=== PATIENT | female | born 1940 | race Caucasian/White ===

== ENCOUNTER 2017-03-06 09:10 | Inpatient (IN) | payer MEDICARE, BC ==
[~2017-03-06] VITALS: Ht 165.1 cm; Wt 94.4 kg
--- NOTE | ~2017-03-06 | DS ---
PATIENT'S NAME: JENNA NIXON [facility] AGE: 77 Y [address] ROOM: [address] [address] [place] [facility] [place]: 03/07/2017 Discharge Summary DISCHARGE DATE: 03/12/2017 FAMILY PHYSICIAN: Physician, Unknown ATTENDING PHYSICIAN: Cliff Art ADDENDUM: Discharge time spent on this patient is approximately 35 minutes, which included a lot of counseling done with the patient regarding her heart failure and fluid management, and she had other questions, all of which were answered. MD IVON MALIK/daphney /[id number] d: 03/13/17 0039 t: 03/17/17 1622, DISCHARGE SUMMARY
--- NOTE | ~2017-03-06 | OR ---
PATIENT'S NAME: JENNA NIXON [facility] AGE: 77 Y [address] ROOM: [address] [address] [place]: [facility] [place] DATE: 03/06/2017 OR/Procedure Report DISCHARGE DATE: FAMILY PHYSICIAN: PHYSICIAN, UNKNOWN ATTENDING PHYSICIAN: Jacob Montoya SURGEON: Jacob Montoya MD MONEY MARKET CLERK: DATE OF PROCEDURE: 03/06/2017 PREOPERATIVE DIAGNOSIS: Right proximal ureteral calculus. POSTOPERATIVE DIAGNOSIS: Right proximal ureteral calculus with possible uric acid stone. PROCEDURE: Cystoscopy and right stent placement. ANESTHESIA: Sedation. INDICATION: This is a 77-year-old lady transferred from Dr. Rivas with a 5 mm right proximal ureteral calculus. She had associated abdominal pain. She also had nausea and vomiting. On further review, we also find that she has had a complicated recent history. In fact, the anesthesia has recommended against any general anesthetic, so we will avoid proximal ureteroscopy. We will proceed with sedation and stent her. They have also recommended admission for observation. That is all related to some dizziness and a recent fall. She was found to have an O2 saturation of 66% when she arrived in preop here. She was also hypertensive. She has been following with a cotton converter in [place]. They have not gotten any answers at this point. She was not supposed to be on home O2, but they did recommend CPAP. She has not gotten that started. The consensus is that there was significant health concerns with too much gap in between and she is a long ways from home in [place], so she and her son have agreed to observation admission. She does okay afterwards, she can continue her previous workup as an outpatient. Her pain has been going on for some time. In fact, the outside records indicate that a CT scan was ordered in October, but she still has not gotten it done to this point. She had a chest CT scan done earlier this month, there were some vague changes in her right kidney. I suspect that is related to obstruction. In any event, we will stent her acutely, continue the workup of her other issues, and then either proceed with lithotripsy or ureteroscopy electively. DESCRIPTION OF PROCEDURE: Having obtained informed consent, the patient was PATIENT'S NAME: JENNA NIXON [facility] AGE: 77 Y [address] ROOM: [address] [address] LOCATION: [facility] [place] DATE: 03/06/2017 OR/Procedure Report DISCHARGE DATE: FAMILY PHYSICIAN: PHYSICIAN, UNKNOWN ATTENDING PHYSICIAN: Jacob Montoya taken to the cystoscopy suite. She was prepped and draped sterilely and in lithotomy position. IV sedation was administered. A 21-Upper Sorbian cystoscope was assembled and guided into the urethra. She has some yellow crystals and even small stones floating in her bladder. Consistent with that, I cannot appreciate her stone on fluoroscopy. I suspected it is uric acid. Bladder examination was confirmed with a 70-degree lens. I passed a guidewire up the right side. It slides to the renal pelvis and not meet any obstruction. Over that wire, I passed a 4.8 multilink stent. We have a nice level of placement cystoscopically and fluoroscopically. The bladder was drained in the case and is concluded. She tolerated the procedure well. BLOOD LOSS: Minimal. SPECIMENS: No specimens were sent. CONDITION: The patient returned to the recovery area, awake and stable condition. PLAN: I have discussed her recent history with the hospitalist. They will admit for observation. We will make arrangements for elective stone treatment in the future. JACOB MONTOYA MD SF/modl /[id number] CC: Dayanara Rivas MD d: 03/06/17 2043 t: 03/26/17 0634, OPERATIVE SUMMARY
--- NOTE | ~2017-03-06 | PUL ---
PATIENT'S NAME: JENNA NIXON [facility] AGE: 77 Y [address] ROOM: [address] [address] LOCATION: [facility] [place] ADMIT DATE: 03/07/2017 Pulmonary DISCHARGE DATE: FAMILY PHYSICIAN: PHYSICIAN, UNKNOWN ATTENDING PHYSICIAN: SHABANA IBRAHIM NAME OF PROCEDURE: Overnight Trend Oximetry DATE OF PROCEDURE: March 11 to March 12, 2017 REASON FOR EXAM: Nocturnal hypoxemia RESULTS: Patient underwent overnight trend oximetry with saturations ranging from 80 to 95%. Saturations were below 88% for greater than 5 minutes. Heart rate ranged from 73 to 97 beats per minute. SALVADOR QUIROZ MD /[id number] dtt: 03/26/17 0827 , Salvador Quiroz dtd: 03/12/17 1509
--- NOTE | ~2017-03-06 | HP ---
PATIENT'S NAME: JENNA NIXON [facility] AGE: 77 Y [address] ROOM: [place] [address] LOCATION: [facility] [place] ADMIT DATE: 03/06/2017 History & Physical DISCHARGE DATE: FAMILY PHYSICIAN: PHYSICIAN, UNKNOWN ATTENDING PHYSICIAN: Jacob Wang DATE OF SERVICE: CHIEF COMPLAINT: Acute hypoxic respiratory failure. HISTORY OF PRESENT ILLNESS: The patient is a 77-year-old female with past medical history of obstructive sleep apnea, diabetes mellitus type 2, hypertension, and obesity, who presents here with acute hypoxic respiratory failure subsequently after cystoscopy with stent placement in right ureter. The patient was recently admitted in [facility] few days ago with right quadrant pain. CT was done and shows obstructive stone with hydronephrosis. The patient was transferred here for cystoscopy and stent placement. The patient was seen by Dr. Wang and had a successful cystoscopy and stent placement. However, the patient was noted to have increased oxygen demand shortly after the surgery. The patient's O2 saturation decreased all the way around in the low 80s. The patient was started on 4 L nasal cannula oxygen and was admitted for observation for hypoxic respiratory failure. The patient reports that she was recently diagnosed with obstructive sleep apnea and was told that her right diaphragm is elevated. The patient is scheduled to be started on CPAP at night. The patient also reports dyspnea on exertion with minimal exertion. The patient currently denies chest pain, fever, cough, abdominal pain, nausea, vomiting, diarrhea, or dizziness. The patient reports that she has been off her metformin and detemir in the past 2 days and reports that her blood glucose level is around 150s. The patient also reports that episode of hypoglycemia at home while she is on metformin and 40 units of detemir. MEDICAL HISTORY: 1. Obstructive apnea. 2. Diabetes mellitus type 2. 3. Hypertension. 4. GERD. 5. Hypothyroidism. SURGICAL HISTORY: 1. Cholecystectomy. 2. EGD. FAMILY HISTORY: PATIENT'S NAME: JENNA NIXON [facility] AGE: 77 Y [address] ROOM: [place] [address] LOCATION: [facility] [place] ADMIT DATE: 03/06/2017 History & Physical DISCHARGE DATE: FAMILY PHYSICIAN: PHYSICIAN, UNKNOWN ATTENDING PHYSICIAN: Jacob Wang CVA in father. Son has polycystic kidney disease. 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 MEDICATIONS: Please see MAR. REVIEW OF SYSTEMS: All systems have been reviewed and negative except for what is mentioned in the HPI. PHYSICAL EXAMINATION: VITAL SIGNS: Afebrile, blood pressure 198/84, heart rate of 63, saturating 93% on 4 L oxygen with respiratory rate of 14. GENERAL APPEARANCE: The patient is alert and awake, in no acute distress. HEAD: Normocephalic and atraumatic. EYES: Extraocular muscle intact. NOSE: No nasal discharge. EARS: No ear discharge. ORAL CAVITY: Moist oral mucosa. HEART: The patient has grade 2 systolic murmur heard on second intercostal. No rubs or gallops. CHEST: Mild bibasilar rales. Decreased breath sounds in right lower lung wyman. No rales or rhonchi heard. ABDOMEN: Soft, nontender, and nondistended. Bowel sounds present. SKIN: Warm to touch. MUSCULOSKELETAL: Range of motion intact. No obvious effusion. LOWER EXTREMITY: Bilateral pitting edema. BOOM PUMP OPERATOR: Alert and oriented x3. Motor and sensory grossly intact. DATA: Labs taken yesterday from [facility] show sodium of 140, potassium of 3, chloride of 101, CO2 of 26, BUN of 16, creatinine of 0.84, and blood glucose 104. Hemoglobin of 10, white blood cell count of 8.26, and platelet of 216. Telemetry shows sinus bradycardia with heart rate in the 50s. ASSESSMENT AND PLAN: 1. Acute hypoxic respiratory failure. Etiology most likely secondary to recent cystoscopy requiring anesthesia. However, according to the patient's history, the patient has uncontrolled hypertension and has history of diabetic and obese, and the patient is also 77, so one wonder if the patient has underlying heart failure. From the history and PATIENT'S NAME: JENNA NIXON [facility] AGE: 77 Y [address] ROOM: [address] [address] LOCATION: [facility] [place] ADMIT DATE: 03/06/2017 History & Physical DISCHARGE DATE: FAMILY PHYSICIAN: PHYSICIAN, UNKNOWN ATTENDING PHYSICIAN: Jacob Wang examination, the patient has some bibasilar rales, pitting edema, and also has dyspnea on exertion. Thus, we will start the patient on Lasix 20 mg IV t.i.d. We will stop IV fluids. We will also acquire chest x- ray and a proBNP to further investigate underlying heart failure. We will start the patient on diabetic diet with low-salt diet. We will also acquire chest x-ray and EKG. I discussed this with the patient. The patient reports that she has been seen by Dr. Mendoza in the past and has had cardiac cath done in 2007 and was told she has good heart. However, we will continue with current regimen and see if the patient's symptoms improve. If the above workup is significant, the patient would benefit with a cardiology consult with Dr. Mendoza for further investigation including echocardiogram. 2. Diabetes mellitus type 2. The patient reports that she takes Levemir 40 units in the morning and also metformin 1000 b.i.d. However, at home, she reports that she has episodes of hypoglycemia. Interestingly, the patient's blood glucose has been somewhat euglycemic without medication at [facility]. Thus, we will discontinue detemir for now. Start the patient on sliding scale and continue metformin. We will follow up with close monitor with Accu-Chek. 3. Accelerated hypertension. Blood pressure 199/84. We will start the patient on medication of BALJIT inhibitor and also add Lasix to her regimen, and we will follow the patient closely. 4. Hypothyroidism. Continue medication. 5. Gastroesophageal reflux disease. Continue PPI. 6. Obstructive sleep apnea. The patient has not been started on CPAP but is currently waiting for CPAP machine. While she is here, we will start the patient on CPAP machine. 7. Obesity. Ongoing. 8. Hypokalemia. Potassium of 3. We will supplement potassium and repeat CMS in the morning. 9. Abelino kidney stone with hydronephrosis, status post stent placement. Management per Dr. Wang. The patient is stable. The patient tolerated the procedure well. I have personally reviewed the patient's medical record including but not limited to blood work and radiology report. Total time spent with the patient is greater than 60 minutes, more than 50% of the time is spent in direct patient care. Case was reviewed with the patient, nursing staff. All questions were answered to the patient's satisfaction. We will admit the patient for observation. ROCK AKBAR MD PATIENT'S NAME: JENNA NIXON [facility] AGE: 77 Y [address] ROOM: [place] [address] LOCATION: [facility] [place] ADMIT DATE: 03/06/2017 History & Physical DISCHARGE DATE: FAMILY PHYSICIAN: PHYSICIAN, UNKNOWN ATTENDING PHYSICIAN: Jacob Wang/daphney /[id number] D: [id number] T: [id number] HISTORY & PHYSICAL
--- NOTE | ~2017-03-06 | ECHO ---
Transthoracic Echocardiography Report (TTE) Demographics Patient Name JENNA NIXON Date of Study 03/07/2017 Patient Number [id number] Visit Number [id number] Date of 1940 Room Number G3223 Gender Female Number Age 77 year(s) Referring Kaelyn Wong Datastage Architect Cristina Berg RDCS, Physician RVT Physician Interpreting Leny Chairez Bottle Assembler Physician A Supervising Ordering Kaelyn Wong MD/MLP Physician MD Nurse Stress R D Internship Conclusions Contractility Score Summary Normal Left Ventricular contractility was noted. Summary The estimated left ventricular ejection fraction is 65-70%. Diastolic assessment reveals Grade I diastolic dysfunction. The left atrium is severely dilated by LA volume index measurement. Moderate mitral valve stenosis. The mean gradient is 7 mmHg. Mild to moderate calcification of the mitral valve. Moderate mitral annular calcification. There is mild aortic stenosis by the Continuity Equation. The peak velocity is 2.56 m/s, the mean gradient is 14 mmHg, and the valve area based on the continuity equation is 1.44 cm2. Mild tricuspid regurgitation by color Doppler. There is moderate pulmonary hypertension. The pulmonary pressure (RVSP) is 49.11 mmHg. Procedure Type of Study TTE procedure:2D Echocardiogram. Procedure Date Date: 03/07/2017 Start: 02:45 PM Study Location: Echo Lab Technical Quality: Adequate visualization Indications:Ventricular tachycardia. Appropriate Use Criteria: 9 Patient Status: CAROLE HR: 92 bpm BP: 135/64 mmHg M-Mode/2D Measurements LV Diastolic Dimension: 4.4 cm LV Systolic Dimension: 1.68 cm LV Septum Diastolic: 0.84 cm LV PW Diastolic: 0.99 cm AO Root Dimension: 2.9 cm Cardiac Output: 6.44 l/min AV Cusp Separation: 1.7 cm RV Diastolic Dimension: 2.76 cm LA volume: 110 ml LVOT: 1.9 cm RV Base: 3.2 cm LVOT VTI: 24.7 cm RV Mid: 2.99 cm LV Stroke volume: 70 ml TAPSE: 2.3 cm TDI-S': 12.6 cm/s Doppler Measurements AV Peak Velocity: 2.56 m/s MV Peak E-Wave: 1.29 m/s AV Peak Gradient: 26.21 mmHg MV Peak A-Wave: 1.67 m/s AV Mean Gradient: 14 mmHg MV E/A Ratio: 0.77 LVOT Peak Velocity: 1.24 m/s MV P1/2t: 132 msec TR Gradient:34.11 mmHg PV Peak Velocity: 0.9 m/s Estimated RAP:15 mmHg PV Peak Gradient: 3.2 mmHg Estimated RVSP: 49 mmHg Estimated PASP: 49.11 mmHg E' Septal Velocity: 0.05 m/s A' Septal Velocity: 0.1 m/s E' Lateral Velocity: 0.08 m/s A' Lateral Velocity: 0.14 m/s Findings Left Ventricle Diastolic assessment reveals Grade I diastolic dysfunction. Right Ventricle Normal right ventricle structure and function. Left Atrium The left atrium is severely dilated by LA volume index measurement. Right Atrium Normal right atrial size. The interatrial septum appears aneurysmal. Mitral Valve Moderate mitral valve stenosis. The mean gradient is 7 mmHg. Mild to moderate calcification of the mitral valve. Moderate mitral annular calcification. Aortic Valve There is mild aortic stenosis by the Continuity Equation. The peak velocity is 2.56 m/s, the mean gradient is 14 mmHg, and the valve area based on the continuity equation is 1.44 cm2. Tricuspid Valve Mild tricuspid regurgitation by color Doppler. There is moderate pulmonary hypertension. The pulmonary pressure (RVSP) is 49.11 mmHg. Pulmonic Valve Normal pulmonic valve structure and function. Pericardial Effusion No evidence of pericardial effusion. Miscellaneous Visualized portions of the aortic root and ascending aorta appear normal in size. Pleural Effusion No evidence of pleural effusion. Contractility Score LV regional wall motion:(0-Non visualized 1-Normal 2-Hypokinesis 3-Akinesis 4-Dyskinesis 5-Aneurysm) Signature dtt: Norberto Michele dtd: 03/07/17 1445 Physician Self Edit
--- NOTE | ~2017-03-06 | DS ---
PATIENT'S NAME: JENNA NIXON [facility] AGE: 77 Y [address] ROOM: [address] [address] [place] [facility]: 03/07/2017 Discharge Summary DISCHARGE DATE: 03/12/2017 FAMILY PHYSICIAN: Physician, Unknown ATTENDING PHYSICIAN: Cliff Art PRIMARY DIAGNOSES: 1. Acute hypoxic respiratory failure. 2. Rbemt-rv-qxonwsv diastolic heart failure. 3. Valvular atrial fibrillation. 4. Acute kidney injury on chronic kidney disease, stage 3. 5. Diabetes type 2. 6. Morbid obesity. 7. Obstructive sleep apnea. 8. Right ureteral stone. PRINCIPAL PROCEDURE DONE FOR THE PATIENT: Includes cystoscopy with a right ureteral stent placement by Dr. Wang. LABORATORY DATA: On admission, WBC on admission was 7.8, was stable throughout the hospital stay, prior to discharge was 8.8, H and H on admission was 11.1/33.4, prior to discharge was 10.9/33.4, creatinine on admission was 1.1, prior to discharge was 1.4. Sodium on admission was 138, prior to discharge was 147, potassium was 3.6 upon admission, prior to discharge was 3.7, bicarb was stable throughout the hospital stay, it was 23 on admission, prior to discharge was 30, BUN was 39, calcium was stable throughout the hospital stay. Magnesium on admission was 1.6, prior to discharge was 2.0. Liver function test was within normal limits throughout the hospital stay. Hemoglobin A1c was 9.5. TSH was 1.190. RADIOLOGY: Chest x-ray on admission was reported as low lung volumes with streaky bibasilar opacity, which could reflect atelectasis or infiltrate. Elevation of right hemidiaphragm. Repeat chest x-ray, a couple of days later, cardiac enlargement with mild vascular congestion. Low lung volumes with bibasilar streaky opacity, which could reflect edema, atelectasis, or infiltrate. Worsening in the overall radiographic appearance since prior imaging. Echocardiogram is reported as ejection fraction 65% to 70% diastolic. Assessment grade 1 diastolic dysfunction. Vczu-af-cqwxsyti calcification of the mitral valve stenosis and mild aortic stenosis. PA pressure 49. HOSPITAL COURSE: For history of present illness, please take a look at the H and P, which was done by Dr. Kyle. The patient following the procedure of cystoscopy with right ureteral stent placement. Postop in PACU, the patient's acute hypoxic respiratory failure had got worse and so care was transferred PATIENT'S NAME: JENNA NIXON [facility] AGE: 77 Y [address] ROOM: [place] [address] [place] [facility] [place]: 03/07/2017 Discharge Summary DISCHARGE DATE: 03/12/2017 FAMILY PHYSICIAN: Physician, Unknown ATTENDING PHYSICIAN: Cliff Art over to hospitalist and the patient was managed in the Medical/Surgical Unit. The acute hypoxic respiratory failure was thought to be secondary to acute-on- chronic diastolic heart failure; so, the patient was gently diuresed. The patient was on 4 L of nasal cannula at least for the 3 days of the hospital stay with difficulty in weaning off the oxygen. Because of the initial difficulty with weaning off the oxygen, a repeat chest x-ray which was done 3 days after hospital admission showed a worsening. She was continued on gentle diuresis, secondary to her CKD, stage 3. By the 4th day of the hospital stay, the patient's oxygen demand had reduced from 4 to 2 and she was continued to be weaned off oxygen; and by the 5th day she was successfully weaned off oxygen to room air; however, still requiring about 2 L of nasal cannula at nighttime for her obstructive sleep apnea, which had recently been diagnosed prior to admission here and was supposed to get her CPAP delivered at home prior to this hospital admission. During her stay, telemonitoring also did show periods of AFib, which were transient. For this Cardiology consult was called and after the patient was evaluated, it was discovered that the patient did have a history of valvular AFib for which she has been followed up with Dr. Worthington, our community center director here, and who had recommended for the patient to be on anticoagulation; however, had refused and said that she would think about it. After the patient was reviewed by the Cardiology team inhouse, this too recommended for the patient to be on anticoagulation and still said that she needed to think about it as she had friends who had from being on long- term anticoagulation. She continued to respond to diuresis and slowly her diuretic agent of Lasix was tapered down from 60 to 40 IV daily. However, on the day of discharge, her creatinine had bumped up to 1.4 and plan was to hold off on her Lasix for at least 3 days then she will follow up with her family doctor to repeat her BMP and if it improves for her to restart on the lower dose of Lasix probably 20 daily. Her weight on admission was 98.8 and prior to discharge was 94.4. So, our respiratory therapist here did discuss with the another agency to ensure that the patient's CPAP was delivered to her home on the day of discharge. The night prior to discharge, she did also get an overnight trend ox done, and obviously which was positive and so she had CPAP as well as oxygen to be delivered to her home in [place], [place] on the day of discharge. On the day of discharge, vital signs were stable, and the patient was discharged home. Her insulin was also adjusted upwards during her hospital stay to achieve a better glycemic control. DISCHARGE INSTRUCTIONS: Includes the patient is to follow up with the PCP in the next 3 days on Saturday for PCP to recheck her BMP and mag and if her creatinine has returned to baseline to restart the patient back on Lasix 20 mg daily and the patient is to follow up with Dr. Worthington who is going to be going out to [place], [place] in the next 2 weeks and she has an appointment to follow up with the urologist in next 2 to 3 weeks. MEDICATIONS ON DISCHARGE: Includes: PATIENT'S NAME: JENNA NIXON [facility] AGE: 77 Y [address] ROOM: [place] [address] [place] [facility] [place]: 03/07/2017 Discharge Summary DISCHARGE DATE: 03/12/2017 FAMILY PHYSICIAN: Physician, Unknown ATTENDING PHYSICIAN: Cliff Art 1. Levemir 44 units subcu q.a.m. 2. Prilosec 20 mg p.o. daily. 3. Multivitamin 1 tablet p.o. daily. 4. Metformin 1 g twice daily. 5. Enalapril 20 mg p.o. twice daily. 6. Synthroid 100 mcg p.o. daily. 7. Vitamin D3 one tablet orally daily. 8. Calcium carbonate 1 tablet p.o. twice daily. 9. Loratadine 10 mg orally 3 times a week. 10. Norvasc 10 mg p.o. daily. 11. Metoprolol 50 mg orally twice daily, dose changed. 12. Tramadol 25-50 mg orally q.6 h. p.r.n. 13. Lasix 20 mg p.o. daily, to start if GABBIE is resolved. MD IVON MALIK/daphney /[id number] d: 03/13/17 0054 t: 03/17/17 1619, DISCHARGE SUMMARY
--- NOTE | ~2017-03-06 | CON ---
PATIENT'S NAME: JENNA MONDRAGON [facility] AGE: 77 Y [address] ROOM: [address] [address] [place] [facility] [place]: 03/07/2017 Consultation DISCHARGE DATE: FAMILY PHYSICIAN: PHYSICIAN, UNKNOWN ATTENDING PHYSICIAN: SHABANA IBRAHIM REFERRING PHYSICIAN: Jacob Wang MD REFERRING PHYSICIAN: Shabana Ibrahim MD. REASON FOR CONSULT: Paroxysmal atrial fibrillation. HISTORY OF PRESENT ILLNESS: Ms Mondragon is a pleasant 77-year-old female. Cardiology was consulted due to recurrent episodes of atrial fibrillation. The patient initially presented to [facility] with abdominal pain and she was found to have renal colic and was subsequently transferred to [facility] for higher level of care. The patient had a right ureteral stent placement. Subsequently during observation, she was noted to have recurrent episodes of atrial fibrillation and hence Cardiology was consulted. The patient denied any chest pain. No history of increasing shortness of breath. No history of palpitations. REVIEW OF SYSTEMS: The patient stated she has bilateral diminished vision and is scheduled for cataract surgery. History of nausea is present. No history of vomiting. Questionable history of fever is present. No history of diarrhea or constipation. No history of cough or expectoration. No history of syncope. No history of frequent bleeds. Review of other systems is essentially negative. PAST MEDICAL HISTORY: Obstructive sleep apnea, diabetes mellitus, hypertension, gastroesophageal reflux disease, hypothyroidism. PAST SURGICAL HISTORY: The patient is status post cholecystectomy and has EGD in the past. PAST FAMILY HISTORY: Her father had stroke and her mother had coronary artery disease. SOCIAL HISTORY: Patient is retired nurse. She denied any smoking. She lives by herself. CURRENT MEDICATIONS: Please see MAR. PATIENT'S NAME: JENNA MONDRAGON [facility] AGE: 77 Y [address] ROOM: [address] [address] [place]: [facility] [place]: 03/07/2017 Consultation DISCHARGE DATE: FAMILY PHYSICIAN: PHYSICIAN, UNKNOWN ATTENDING PHYSICIAN: SHABANA IBRAHIM PHYSICAL EXAMINATION: GENERAL: She is awake, alert, and oriented and in no distress. VITAL SIGNS: Her pulse rate is 76 beats per minute and irregular, respiratory rate 16, blood pressure is 180/75 mmHg, temperature 97.5. HEENT: Her head is atraumatic, normocephalic. NECK: No significant jugular venous distention is present. CARDIOVASCULAR: S1, S2 are audible. They are irregular in rate and rhythm. Systolic murmur is audible in the left parasternal area. RESPIRATORY: Bilateral vesicular breath sounds are audible. Breath sounds are diminished at bases. ABDOMEN: Soft, nontender. Bowel sounds are present. EXTREMITIES: Showed no significant pedal edema. NEUROLOGIC: No focal neurological deficits are noted. SKIN: Warm and dry. LAB: Sodium 144, potassium 3.8, chloride 106, CO2 29, glucose 148, BUN 27, creatinine 1, albumin 2.5, globulin 3.7, AST 18, ALT 44, magnesium 1.7, TSH 1.19. White blood cell count 7.7, hemoglobin 11.1, hematocrit 33.4, platelet count 206. Her most recent echocardiogram reported ejection fraction 65%-70%, grade 1 diastolic dysfunction, severely dilated left atrium. Moderate mitral valve stenosis with mean gradient of 7 mmHg, mild aortic stenosis, moderate pulmonary hypertension. ASSESSMENT AND PLAN: 1. Paroxysmal atrial fibrillation. 2. Mitral valve disease with moderate mitral stenosis with pulmonary hypertension. 3. Hypertension. 4. Urolithiasis, status post right ureteral stent placement. 5. Hypertension. 6. Diabetes mellitus. PLAN: 1. In view of atrial fibrillation, we will start patient on oral metoprolol for ventricular rate control. In view of valvular atrial fibrillation, she is at increased risk for embolic stroke. The risks and benefits for long-term anticoagulation were discussed with the patient. Also, spoke with Dr. Wang and he stated that there was no contraindication for long- term anticoagulation from urological perspective. However, the patient stated that she knows three of her friends who were on blood thinners and had bleeding and were hospitalized. The patient refused to be on blood thinners at the present time. She was counseled on long-term anticoagulation with Coumadin as well as new oral anticoagulants; PATIENT'S NAME: JENNA MONDRAGON [facility] AGE: 77 Y [address] ROOM: [place] [address] [place] [facility] [place]: 03/07/2017 Consultation DISCHARGE DATE: FAMILY PHYSICIAN: PHYSICIAN, UNKNOWN ATTENDING PHYSICIAN: SHABANA IBRAHIM however, she does not want to be on any anticoagulation. If she changes her decision, would recommend long-term anticoagulation and monitoring for any bleeding episodes. We will also schedule her followup with Cardiology in [place] as desired by the patient. 2. Hypertension, uncontrolled. We will continue with amlodipine and increased dose of metoprolol. Continue enalapril. Continue to monitor blood pressure. 3. Status post ureteral stent placement, management per Urology. 4. Diabetes. Management per hospitalist team. The plan of care was discussed with the patient, her son, Wang, and Dr. Ibrahim. Thank you for allowing us in taking part in the care of this pleasant patient. Please call us, if any questions. Thank you for the consult. MD MAYRA HERRERA/daphney /[id number] d: 03/09/171920 t: 03/28/17 1732, CONSULTATION REPORT
[2017-03-06] MEDS ORDERED: PRILOSEC20 MG PO (10:04)
[2017-03-06] MEDS ORDERED: LEVEMIR100 UNIT/1 SUB-Q (10:04)
[2017-03-06] MEDS ORDERED: ONE DAILY COMP1 EACH PO (10:05)
[2017-03-06] MEDS ORDERED: GLUCOPHAGE1000 MG PO (10:08)
[2017-03-06] MEDS ORDERED: LEVOTHROID (S100 MCG PO (10:09)
[2017-03-06] MEDS ORDERED: VASOTEC20 MG PO (10:09)
[2017-03-06] MEDS ORDERED: VITAMIN D31000 UNI1 PO (10:11)
[2017-03-06] MEDS ORDERED: TUMS REGULAR ST1 TAB PO (10:11)
[2017-03-06] MEDS ORDERED: LORADAMED10 MG PO (10:12)
--- NOTE | 2017-03-06 13:33 | NUR ---
1150-TRANSPORTED W/ 2 ASSIST PER W/C TO BATHROOM, R) ANTECUBITAL IV ACCIDENTALLY D/C'D BY PATIENT. UPON RETURN TO BED, CHECKED PULSE OX WITHOUT OXYGEN ON, SAT 75%; O2 REAPPLIED IMMEDIATELY. 1240-PT STATES NEEDS BATHROOM AGAIN, UP TO BSC WITH 2 ASSIST & OXYGEN ON. UPON RETURN TO BED, SAT 81%.
--- NOTE | 2017-03-06 17:42 | NUR ---
Here from surgery at 1540.Has O2 on at 4L/NC.Does not wear O2 at home.IV in Lt.wrist.Has some dizziness when is up.No c/o pain.Has voided lt.pink with some reported burning.New orders received.
--- NOTE | 2017-03-07 05:41 | NUR ---
Significant Event: C/O LT LOWER ABD PRESSURE/DISCOMFORT FROM STENT. BP ELEVATED AT 2100--228/101. DR NOTIFIED AND ORDERED HYDRALAZYNE IV HOURLY PER ORDERS. LASIX, VASOTEC X 2 DOSES, NITRO PASTE 1 INCH AND HYDRALAZYIE 20MG GIVEN X 4 AND BP @ 0500 WAS 141/69. ULTRAM X1 GIVEN FOR PAIN @ 0123. PATIENT DOZED OFF AND ON AFTER BP DOWN. ACCU CHECK AT HS WAS 247 AND PATIENT REFUSED MILD SCALE NOVALOG INSULIN. VOIDED 845 ML PINK TINGED URINE AND WAS INCONTINENT X2 TONIGHT. DRANK 500 ML FLUIDS. TELEMETRY ON WITH NO CALLS. Follow up: CONTINUE TO MONITOR BP/PAIN
[2017-03-07 06:54] LABS: ALBUMIN 2.8 gm/dL (3.5-5.0); ANION GAP 16.6 (10.0-19.0); CALCIUM 8.2 mg/dL (8.5-10.5); CREATININE 1.1 mg/dL (0.5-1.1); POTASSIUM 3.6 mMol/L (3.7-5.1); TOTAL BILIRUBIN 0.4 mg/dL (0.0-1.5); TOTAL PROTEIN 6.8 g/dL (6.0-8.4)
[2017-03-07 07:34] LABS: CPK 80 IU/L (21-215); MAGNESIUM 1.6 mg/dL (1.8-2.6)
--- NOTE | 2017-03-07 17:12 | NUR ---
SPOKE TO PATIENT'S SON AT THE BEDSIDE. PATIENT IS SLEEPING AT THIS TIME. INTRODUCED CM AND OUR ROLE. PATIENT REPORTS MARCEL WEST LIVES ALONE AND THAT HE WISHED THAT SHE WOULD GO TO SNF OR CARE HOME BUT SHE IS NOT OPENED TO THIS. I PRESENTED THE OPTION OF HHC AND HE FEELS THAT IT WOULD BE A GOOD IDEA BUT NOT SURE SHE WOULD AGREE TO IT. HE REPORTS THAT SHE HAS FRIENDS WHO CHECK ON HER AND HAVE VOICED CONCERNS ABOUT HER BEING HOME ALONE BUT SHE REFUSES TO GO TO SNF.
--- NOTE | 2017-03-07 17:49 | NUR ---
Significant Event: Patient has O2 on at 4L NC. Up with 1PA with gaitbelt. Toileting on commode. Nel called around 0700 and reported A-fib and A-flutter with rates in the 90's. Potassium chloride and Magnesium chloride given-sinus rhythem returned mid morning. IV in L) wrist infiltrated and a power glide placed in upper right arm-good blood return. Edema present in all four extremities, +2. Patient refused Lasix and NovoLog until this evening. ACCU ACHS-last check was 241- NovoLog given. Dr. Art requested a catheter be placed. 16 F martinez placed in AM. Dark marbin urine, urine cleared up this afternoon. Patient went down to have a echo this afternoon. Zofran given x1 ultram x1. Fluid restriction of 1500ml and a daily standing weight.
--- NOTE | 2017-03-07 22:17 | NUR ---
PT REFUSED HER CPAP TONIGHT AND IS CURRENTLY ON 4L NC
--- NOTE | 2017-03-08 02:10 | NUR ---
PT REFUSED TO WEAR HER CPAP TONIGHT AND IS CURRENTLY ON 4L NC.
--- NOTE | 2017-03-08 02:21 | NUR ---
SIGNIFICANT EVENT: Patient alert & oriented. VSS on 4L oxygen. ACHS accucheck - Mod SS. 4 units coverage for HS BG of 230. 1PA walker and gaitbelt to bedside commode. Very dizzy with position changes. R) Stent placement on 03/06/17 - latosha to R) lower abd. Tele on, no calls. Cooperative with cares.
[2017-03-08 05:32] LABS: ALBUMIN 2.4 gm/dL (3.5-5.0); ANION GAP 15.6 (10.0-19.0); CALCIUM 8.5 mg/dL (8.5-10.5); CREATININE 1.3 mg/dL (0.5-1.1); POTASSIUM 3.6 mMol/L (3.7-5.1); TOTAL PROTEIN 5.8 g/dL (6.0-8.4)
[2017-03-08 05:40] LABS: TOTAL BILIRUBIN 0.3 mg/dL (0.0-1.5)
--- NOTE | 2017-03-08 12:58 | NUR ---
Diabetes consult: Patient with Type II diabetes and poorly controlled at 9.5%. The patient reports having [facility] and [facility]. She was encouraged to schedule a follow up appointment with the CDE as her medicare hours will pay for her to meet with the CDE and dietitian. The patient was provided with our contact information and will call if she wants a refresher. Education was provided and guided by the diabetes survival skills assessment form. Levemir was restarted today.
--- NOTE | 2017-03-08 15:53 | NUR ---
Significant Event: Pt denies pain. Up with 1 assist, encourage pt to amb to br. Up in recliner this afternoon. Ojeda draining tea colored urine. Continues on IV Lasix but was decreased. Continues on 4 liters O2 and O2 sat 93%, need to try to titrate down when possible. Per MD, *pt is not allowed to refuse BIPAP*. Tele on, pt in sinus rythym. has a midline to right upper arm, MD order to be able to draw labs from site, good blood return. Continues on fluid restriction. Follow up:
--- NOTE | 2017-03-09 03:06 | NUR ---
SIGNIFICANT EVENT: Patient alert, oriented. Hypertensive at times - 151 to 172 over 69 to 70, other VSS on 1L or bipap after HS. PRN hydralazine given for BP of 172/70. Wanted to take off BiPap at 2nd assessment, but strict orders from MD that pt is to wear while sleeping. Diabetic diet, 1500 fluid restrict. HS BG of 200 - 2 units Novolog coverage. Powerglide to R) UA - MD order approving Nurse Draw. Son at bedside.
[2017-03-09 07:27] LABS: BASOPHIL % 0.3 %; EOSINOPHIL # 0.4 K/uL (0.0-0.5); EOSINOPHIL % 5.3 %; HEMATOCRIT 33.4 % (33.0-46.0); HEMOGLOBIN 11.1 g/dL (10.0-15.0); IMMATURE GRANULOCYTE % 0.4 %; LYMPHOCYTE # 1.8 K/uL (0.8-4.0); LYMPHOCYTE % 23.8 %; MCH 30.2 pg (27.0-34.0); MCHC 33.2 gm/dL (32.0-36.5); MCV 90.8 fl (83.0-98.0); MONOCYTE # 0.5 K/uL (0.0-1.0); MONOCYTE % 6.7 %; NEUTROPHIL # (ANC) 4.9 K/uL (1.8-7.8); NEUTROPHIL % 63.5 %; NRBC % 0 /100WBC (0-0.00); PLATELET COUNT 206 K/uL (150-450); RBC 3.68 M/uL (3.50-5.50); RDW-CV 14.8 % (11.9-14.6); WBC 7.7 K/uL (4.0-11.0)
[2017-03-09 07:31] LABS: ALBUMIN 2.5 gm/dL (3.5-5.0); ANION GAP 12.8 (10.0-19.0); CALCIUM 8.7 mg/dL (8.5-10.5); POTASSIUM 3.8 mMol/L (3.7-5.1); TOTAL BILIRUBIN 0.3 mg/dL (0.0-1.5); TOTAL PROTEIN 6.2 g/dL (6.0-8.4)
--- NOTE | 2017-03-09 17:19 | NUR ---
Significant Event: Pt denies pain. Up with 1 assist. PT must be a daily wt and accurate I&O. 2g mag IV x1, EKG, cardiology consult as pt is back in AFIB. Increase lasix to 60mg IV daily. Pt c/o itching this am but not since, does have prn benadryl. On 2 liters O2 most of shift. Ojeda draining tea colored urine. Follow up:
--- NOTE | 2017-03-10 01:51 | NUR ---
PT CURRENTLY ON 1L NC. DID NOT HAVE AN ORDER FOR CPAP SETTINGS IN PT CHART. ASKED PT FOR HOME SETTINGS BUT SHE DID NOT KNOW DUE TO NON COMPLIANCE. NOTIFIED DR. WALTON OF THIS AND WAS INFORMED TO JUST KEEP HER ON NC.
--- NOTE | 2017-03-10 04:28 | NUR ---
Significant Event:Patient ambulated in hallway with one assist. Denies pain. On tele with no calls. Vitals stable. Rests throughout the night. Ojeda to DD with 650 out. Echocardiogram in am. Follow up: Continue to monitor.
[2017-03-10 05:56] LABS: ALBUMIN 2.5 gm/dL (3.5-5.0); ANION GAP 10.6 (10.0-19.0); BASOPHIL % 0.1 %; CALCIUM 8.8 mg/dL (8.5-10.5); CREATININE 1.4 mg/dL (0.5-1.1); EOSINOPHIL # 0.4 K/uL (0.0-0.5); HEMATOCRIT 33.4 % (33.0-46.0); HEMOGLOBIN 10.9 g/dL (10.0-15.0); IMMATURE GRANULOCYTE % 0.5 %; LYMPHOCYTE # 2.2 K/uL (0.8-4.0); LYMPHOCYTE % 24.5 %; MCH 29.7 pg (27.0-34.0); MCHC 32.6 gm/dL (32.0-36.5); MONOCYTE # 0.6 K/uL (0.0-1.0); MONOCYTE % 6.7 %; MPV 11.2 fl (9.4-12.4); NEUTROPHIL # (ANC) 5.6 K/uL (1.8-7.8); NEUTROPHIL % 63.2 %; NRBC % 0 /100WBC (0-0.00); PLATELET COUNT 223 K/uL (150-450); POTASSIUM 3.6 mMol/L (3.7-5.1); RBC 3.67 M/uL (3.50-5.50); TOTAL BILIRUBIN 0.3 mg/dL (0.0-1.5); TOTAL PROTEIN 6.2 g/dL (6.0-8.4); WBC 8.8 K/uL (4.0-11.0)
--- NOTE | 2017-03-10 08:08 | NUR ---
PT SCREENED D/T LOS. EST NEEDS: [id number] KCALS, 79 GM PROTEIN, 1 ML/KCALS FLUIDS. INTAKE 100%. NOT AT RISK. WILL ASSIST NEEDED.
--- NOTE | 2017-03-10 16:27 | NUR ---
Significant event: Up to BR and in mackey with 1 assist, gait belt and walker. On room air today. Using incentive spirometer. Ojeda draining yellow urine. Denies pain. Continues on telemetry.
[2017-03-11 05:52] LABS: ALBUMIN 2.5 gm/dL (3.5-5.0); CALCIUM 9.1 mg/dL (8.5-10.5); CREATININE 1.3 mg/dL (0.5-1.1); TOTAL PROTEIN 6.1 g/dL (6.0-8.4)
[2017-03-11 05:54] LABS: TOTAL BILIRUBIN 0.2 mg/dL (0.0-1.5)
--- NOTE | 2017-03-11 06:32 | NUR ---
Significant Event:Patient ambulated in the halls with one assist and gaitbelt walker. [place] AC/HS. 1500 fluid restrict, denies pain. Lynette alberto DD. Hoping to go home today. Follow up: Labs this am.
--- NOTE | 2017-03-11 19:54 | NUR ---
Significant Event: patient removing O2 even though a bit hypoxic, refused to have it on once awake, encouraged to use IS and compliant, 490 in fluid restriction, went to PT to do stairs-encouraged to walk before that and refused as she was waiting to walk with PT, martinez removed at 1600-voided at 1830 without difficulty, 490 in po, 350 out martinez, likes meals later and refuses accuchecks and meds until the time she does at home, RT and son working on setting up CPAP for home, trend oximetry tonight on room air then plan for home tomorrow Follow up:
--- NOTE | 2017-03-12 02:58 | NUR ---
SIGNIFICANT EVENT: Patient alert & oriented. VSS on RA. Overnight trend ox this shift. Diabetic diet. 1PA, gaitbelt and walker. Ojeda out yesterday - voiding well this shift. R) UA powerglide flushes well with good blood return. Son at bedside. Pleasant and cooperative with cares.
[2017-03-12 05:38] LABS: ALBUMIN 2.6 gm/dL (3.5-5.0); CREATININE 1.4 mg/dL (0.5-1.1); POTASSIUM 3.7 mMol/L (3.7-5.1); TOTAL PROTEIN 6.3 g/dL (6.0-8.4)
[2017-03-12 05:46] LABS: ANION GAP 13.7 (10.0-19.0); TOTAL BILIRUBIN 0.3 mg/dL (0.0-1.5)
[2017-03-12] MEDS ORDERED: NORVASC10 MG PO (13:36)
[2017-03-12] MEDS ORDERED: LOPRESSOR50 MG PO (13:38)
[2017-03-12] MEDS ORDERED: ULTRAM50 MG PO (13:39)
[2017-03-12] MEDS ORDERED: LASIX20 MG PO (13:47)
--- NOTE | 2017-03-12 14:00 | NUR ---
D: ORDERS RECEIVED FOR THE PATIENT TO BE DISCHARGED TO HOME TODAY WITH HER SON. I: DISMISSAL INSTRUCTIONS WERE PREPARED AND REVIEWED WITH THE PATIENT AND HER SON VIRTUALLY. THE FOLLOWING INFORMATION WAS DISCUSSED INCLUDING [facility] TEACHING SHEETS PROVIDED: TAKING MEDICATION TO CONTROL HEART FAILURE, HEALTHY MEALS FOR DIABETES, CYSTOSCOPY, STENTS URETERAL, NORVASC, LOPRESSOR, ULTRAM, LASIX, AND PREVENTING DVT. REVIEWED FOLLOW UP APPOINTMENT AND NEW PRESCRIPTION WITH THE PATIENT AND HER SON. R: THE PATIENT AND HER SON BOTH VERBALIZED UNDERSTANDING OF THE DISMISSAL EDUCATION AT THE TIME OF TEACHING WITH NO FURTHER QUESTIONS. P: THE ABOVE INFORMATION WAS SHARED WITH THE PRIMARY NURSE AND THE CHARGE NURSE THAT THE PATIENT DISMISSAL EDUCATION WAS COMPLETED. THE PATIENT IS READY FOR DISCHARGE TO THE FRONT DOOR VIA WHEEL CHAIR BY NURSING STAFF.
--- NOTE | 2017-03-12 15:03 | NUR ---
DISMISSED PER W/C TO FRONT DOOR TO CAR ACCOMP.BY HEAD ANIMAL KEEPER & SON.DISCHARGE PAPERS WERE SIGNED & GIVEN AFTER TEACHING DONE BY NATALIE PEÑA.
--- NOTE | 2017-03-12 15:13 | NUR ---
Introduced self and purpose of heart healthy education. Son at bedside. Calendar given, information reviewed, verbalized understanding.
== END 2017-03-12 15:03 | disposition disaster alternative care site (69) | DRG 189 ==
LOC: GSDC 09:10 → GMSU 09:10 → GSDC 03-07 12:45 → GMSU 03-12 15:03
PROVIDERS: Internal Medicine; ADMIT Hospitalist
PROC: 0T768DZ Dilation of Right Ureter with Intraluminal Device, Via Natural or Artificial Opening Endoscopic (ICD-10-PCS; principal; 2017-03-06)
PROC: B246ZZZ Ultrasonography of Right and Left Heart (ICD-10-PCS; 2017-03-07)
PROC: 3E0F7GC Introduction of Other Therapeutic Substance into Respiratory Tract, Via Natural or Artificial Opening (ICD-10-PCS; 2017-03-11)
DX: J96.01 Acute respiratory failure with hypoxia (principal); N17.9 Acute kidney failure, unspecified; I50.33 Acute on chronic diastolic (congestive) heart failure; I13.0 Hypertensive heart and chronic kidney disease with heart failure and stage 1 through stage 4 chronic kidney disease, or unspecified chronic kidney disease; N13.30 Unspecified hydronephrosis; N20.1 Calculus of ureter; I27.2 Other secondary pulmonary hypertension; E11.22 Type 2 diabetes mellitus with diabetic chronic kidney disease; E03.9 Hypothyroidism, unspecified; E16.2 Hypoglycemia, unspecified; E87.6 Hypokalemia; G47.33 Obstructive sleep apnea (adult) (pediatric); I05.9 Rheumatic mitral valve disease, unspecified; I48.0 Paroxysmal atrial fibrillation; K21.9 Gastro-esophageal reflux disease without esophagitis; N20.0 Calculus of kidney; Z90.49 Acquired absence of other specified parts of digestive tract; N18.3 Chronic kidney disease, stage 3 (moderate); I49.8 Other specified cardiac arrhythmias
CPT/HCPCS: A9270; C1751; C1769; C2617; J0360; J1650; J1940; J1956; J2001; J2405; J3475; J3480; J7030; J7040; J7050; J7060

== ENCOUNTER → 2017-03-25 | Outpatient (CLI) | payer MEDICARE, BC ==
[~2017-03-25] MED LIST: GLUCOPHAGE1000 MG PO; LASIX20 MG PO; LEVEMIR100 UNIT/1 SUB-Q; LEVOTHROID (S100 MCG PO; LOPRESSOR50 MG PO; LORADAMED10 MG PO; NORVASC10 MG PO; ONE DAILY COMP1 EACH PO; PRILOSEC20 MG PO; TUMS REGULAR ST1 TAB PO; ULTRAM50 MG PO; VASOTEC20 MG PO; VITAMIN D31000 UNI1 PO
== END | disposition disaster alternative care site (69) ==
LOC: GRAD 09:00
DX: N17.9 Acute kidney failure, unspecified (principal); E66.01 Morbid (severe) obesity due to excess calories; I48.91 Unspecified atrial fibrillation; G47.33 Obstructive sleep apnea (adult) (pediatric); Z96.0 Presence of urogenital implants